=== PATIENT | male | born 1965 | race Asian ===

== ENCOUNTER 2019-02-20 07:48 | Day surgery (SDC) | payer OTHER ==
[~2019-02-20] VITALS: Ht 167.6 cm; Wt 86.4 kg
[2019-02-20 08:23] VITALS: Ht 167.6 cm; Wt 86.4 kg
[2019-02-20] MEDS ORDERED: HYDR5TAB7 PO (08:32)
[2019-02-20] MEDS ORDERED: LEVE250T66 PO (08:32)
[2019-02-20] MEDS ORDERED: EMTR1TAB16 PO (08:32)
[2019-02-20] MEDS ORDERED: FLUC100T39 PO (08:32)
[2019-02-20] MEDS ORDERED: ATAZ1TAB PO (08:32)
[2019-02-20] MEDS ORDERED: FLUD0.1T10 PO (08:32)
--- NOTE | 2019-02-20 08:48 | PREAC ---
Date/Time of Note Date/Time of Note DATE: 02/20/19 TIME: 08:45 Anesthesia Eval and Record Evaluation Time Pre-Procedure Interview DATE: 02/20/19 TIME: 08:45 Age 53 Sex male NPO: 8 hrs Preoperative diagnosis Abdominal Pain Planned procedure Colonoscopy Past Medical History Past Medical History: Includes Neuro: Seizure disorder, Other (Brain Abscess) Infection(s): HIV Recreational drugs: Other (hx of Drug use) Surgery & Anesthesia Issues No known issue Meds Anticoagulation: No Beta Parish within 24 hr: No Reason Beta Parish not given: Pt. not on B-Parish Reported Medications Levetiracetam* (Keppra*) 250 Mg Tab, 250 MG PO BID, TAB 02/20/19 Hydrocortisone (Hydrocortisone) 5 Mg Tablet, 5 MG PO, TAB 02/20/19 Fludrocortisone* (Fludrocortisone*) 0.1 Mg Tablet, 0.1 MG PO DAILY, TAB 02/20/19 Fluconazole* (Fluconazole*) 100 Mg Tablet, 100 MG PO DAILY, TAB 02/20/19 Atazanavir Sulfate/Cobicistat (Evotaz 300 mg-150 mg Tablet) 1 Each Tablet, 1 EACH PO, TAB 02/20/19 Emtricitabine/Tenofov Alafenam (Descovy 200-25 mg Tablet) 1 Each Tablet, 1 EACH PO, TAB 02/20/19 Meds reviewed: Yes Allergies Coded Allergies: codeine (Verified Adverse Reaction, Unknown, 02/20/19) Allergies Reviewed: Yes Labs/Studies Labs Reviewed: Reviewed by anesthesiologist test: N/A Studies: ECG (n/a), CXR (n/a) Pre-procedure Exam Airway: Adequate mouth opening, Adequate thyromental dist Mallampati: Mallampati II Teeth: Normal Lung: Normal Heart: Normal ASA Physical Status ASA physical status: 3 Emergency: None Planned Anesthetic General/MAC: MAC Planned Pain Management Parenteral pain med Pre-operative Attestations Prior to commencing anesthesia and surgery, the patient was re-evaluated, there was verification of: *The patient's identity *The results of appropriate recent lab work and preoperative vital signs *The above evaluation not changing prior to induction *Anesthetic plan, risk benefits, alternative and complications discussed with patient/family; questions answered; patient/family understands, accepts and wishes to proceed. ADALGISA ONOFRE MD Feb 20, 2019 08:48
[2019-02-20 08:56] VITALS: BP 135/72; PULSE 70; RESP 20
[2019-02-20] MEDS ORDERED: HYDROCORTISONE 100 MG INJ IV ONE (09:00)
[2019-02-20] MEDS ORDERED: PROPOFOL 40 ML ONE (09:28)
--- NOTE | 2019-02-20 09:29 | PAC ---
Date/Time of Note Date/Time of Note DATE: 02/20/19 TIME: 09:29 Post-Anesthesia Notes Post-Anesthesia Note Last documented vital signs T: 98.1 Activity: WNL Respiratory function: WNL Cardiovascular function: WNL Mental status: Baseline Pain reasonably controlled: Yes Hydration appropriate: Yes Nausea/Vomiting absent: Yes ADALGISA ONOFRE MD Feb 20, 2019 09:29
[2019-02-20 10:12] VITALS: BP 132/74; RESP 21
== END 2019-02-20 10:16 | disposition home or self-care (01) ==
LOC: GIL 07:48
PROVIDERS: ATTEND Internal Medicine Gastroenterology
DX: Z12.11 Encounter for screening for malignant neoplasm of colon (principal); K64.9 Unspecified hemorrhoids; G40.909 Epilepsy, unspecified, not intractable, without status epilepticus
CPT/HCPCS: 45378; 88305; J1720; Z7610